=== PATIENT | female | born 1940 | race Caucasian/White ===

== ENCOUNTER 2020-12-25 03:22 | Emergency (ER) | payer OTHER, MEDICAID ==
[~2020-12-25] VITALS: Ht 167.6 cm; Wt 87.1 kg
[2020-12-25] MEDS ORDERED: APAP W/CODEINE1 TA2 PO (03:48)
[2020-12-25] MEDS ORDERED: ZYRTEC 10 MG TA10 MG PO (03:49)
[2020-12-25] MEDS ORDERED: ELIQUIS5 MG PO (03:49)
[2020-12-25] MEDS ORDERED: BUSPIRONE HCL5 MG PO (03:49)
[2020-12-25] MEDS ORDERED: VITAMIN D3 PO (03:52)
[2020-12-25] MEDS ORDERED: DULOXETINE HCL30 MG PO (03:52)
[2020-12-25] MEDS ORDERED: DULOXETINE HCL60 MG PO (03:53)
[2020-12-25] MEDS ORDERED: FLONASE 0.05%50 MCG NARES (03:54)
[2020-12-25] MEDS ORDERED: LOPERAMIDE 2 MG2 M1 PO (03:56)
[2020-12-25] MEDS ORDERED: IPRAT-ALBUT 0.5-3 ML (03:56)
[2020-12-25] MEDS ORDERED: JARDIANCE10 MG PO (03:57)
[2020-12-25] MEDS ORDERED: LEVO-T25 MCG PO ×2 (03:57→03:58)
[2020-12-25] MEDS ORDERED: COZAAR 25 MG TA25 M1 PO (03:58)
[2020-12-25] MEDS ORDERED: LORAZEPAM 2MG TA2 M1 PO (03:58)
[2020-12-25] MEDS ORDERED: TOPROL XL50 MG (04:00)
[2020-12-25] MEDS ORDERED: MAGNESIUM CALCIUM PO (04:00)
[2020-12-25] MEDS ORDERED: MYRBETRIQ25 MG PO (04:01)
[2020-12-25] MEDS ORDERED: OXYCODONE HCL10 MG PO (04:02)
[2020-12-25] MEDS ORDERED: OYSTERCAL-D 501 EACH PO (04:03)
[2020-12-25] MEDS ORDERED: PROTONIX40 M3 PO (04:04)
[2020-12-25] MEDS ORDERED: PREDNISONE 5 MG5 MG PO (04:04)
[2020-12-25] MEDS ORDERED: SEROQUEL 25 MG25 MG PO (04:05)
[2020-12-25] MEDS ORDERED: SPIRONOLACTONE25 MG PO (04:06)
[2020-12-25] MEDS ORDERED: VITAMIN B-1100 M2 PO (04:06)
[2020-12-25] MEDS ORDERED: VOLTAREN ARTHRI20 GM (04:07)
[2020-12-25 06:25] VITALS: BP 152/76
--- NOTE | 2020-12-28 13:34 | EKG ---
[place] [address] ELECTROCARDIOGRAM REPORT Name: NI ECKERT Room: [facility]#: [id number] Admission: 12/25/20 Attend Phys: Discharge: 12/25/20 Date of : 42 Date of Service: 12/25/20 033 Report #: [id number] THIS REPORT FOR: //name// [facility] ED Test Date: 2020-12-25 Test Time: 03:32:07 Pat Name: NI ECKERT Department: Room: Gender: Chief Design Engineer: [place] : 1940 Requested By: Pratima Esposito Order Number: [id number] Remy MD: Seven Chavez Measurements Intervals [place] Rate: 57 P: [place]: QRS: 13 QRSD: 110 T: 64 QT: 401 QTc: 391 Interpretive Statements Atrial fibrillation Nonspecific T abnormalities, lateral leads Baseline wander in lead(s) III No previous ECG available for comparison Electronically Signed On 12-28-2020 13:34:35 CDT by Seven Chavez [email or web address] <ELECTRONICALLY SIGNED> By: Seven Chavez MD, [facility] 12/28/20 1334 0332 0332 Seven Chavez MD, [facility] /EPI
== END 2020-12-25 06:25 | disposition home or self-care (01) ==
LOC: M.ERS 03:22
DX: S22.41XA Multiple fractures of ribs, right side, initial encounter for closed fracture (principal); S63.501A Unspecified sprain of right wrist, initial encounter; S20.211A Contusion of right front wall of thorax, initial encounter; S40.021A Contusion of right upper arm, initial encounter; S50.01XA Contusion of right elbow, initial encounter; I11.0 Hypertensive heart disease with heart failure; I50.9 Heart failure, unspecified; I48.91 Unspecified atrial fibrillation; E78.5 Hyperlipidemia, unspecified; Z79.899 Other long term (current) drug therapy; W01.198A Fall on same level from slipping, tripping and stumbling with subsequent striking against other object, initial encounter; Y93.89 Activity, other specified; Y92.89 Other specified places as the place of occurrence of the external cause; Y99.8 Other external cause status